=== PATIENT | female | born 1960 | race Caucasian/White ===

== ENCOUNTER 2017-03-26 13:44 | Emergency (ER) | payer OTHER, BC ==
[~2017-03-26 13:44] MED LIST: Z.0.NO CURRENT MEDS
[2017-03-26 13:48] VITALS: BP 135/81; PULSE 87; RESP 26; TEMP 97.9; O2SAT 98
[2017-03-26] MEDS ORDERED: KETOROLAC TROMETHAMINE 60 MG/2 ML (IM) VIAL IM ONE (14:30)
[2017-03-26] MEDS ORDERED: ORPHENADRINE INJ 60 MG/2 ML AMP IM ONE (14:30)
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
[2017-03-26] MEDS ORDERED: ROBA500T PO (15:38)
[2017-03-26] MEDS ORDERED: NAPR500T2 PO (15:38)
[2017-03-26 16:27] VITALS: RESP 20
[2017-03-26 16:28] VITALS: BP 125/85
== END 2017-03-26 16:29 | disposition home or self-care (01) ==
LOC: NEPE 13:44
DX: S20.211A Contusion of right front wall of thorax, initial encounter (principal); X50.9XXA Other and unspecified overexertion or strenuous movements or postures, initial encounter
CPT/HCPCS: 71101; 96374; 96375; 99284; J1885; J2360